=== PATIENT | female | born 1990 | race Caucasian/White ===

== ENCOUNTER 2016-03-27 19:20 | Emergency (ER) | payer OTHER ==
[2016-03-27] MEDS ORDERED: predniSONE 20 MG TABLET PO STA (20:14)
[2016-03-27] MEDS ORDERED: ALBUTEROL NEB 2.5 MG/3 ML INH STA (20:14)
[2016-03-27] MEDS ORDERED: predniSONE 20 MG TABLET ONE (20:16)
[2016-03-27] MEDS ORDERED: ALBUTEROL NEB 2.5 MG/3 ML INH ONE (20:21)
[2016-03-27] MEDS ORDERED: ALBUTEROL 8 GM INHALER INH STA (21:09)
[2016-03-27] MEDS ORDERED: ALBUTEROL 8 GM INHALER INH ONE (21:23)
== END 2016-03-27 21:42 | disposition home or self-care (01) ==
DX: J20.8 Acute bronchitis due to other specified organisms (principal); B97.89 Other viral agents as the cause of diseases classified elsewhere; J45.909 Unspecified asthma, uncomplicated; F17.200 Nicotine dependence, unspecified, uncomplicated
CPT/HCPCS: 71020; 94640; 94664; 99283; 99284; A9270; J7512; J7613

== ENCOUNTER 2016-07-20 21:48 | Emergency (ER) | payer OTHER ==
[2016-07-20 21:55] VITALS: BP 121/71
[2016-07-20 22:11] LABS: BILIRUBIN,URINE NEGATIVE (NEGATIVE)
[2016-07-20 22:15] LABS: HCG UR QUAL NEGATIVE; UA w/ MICROSCOPIC CHARGE YES
[2016-07-20] MEDS ORDERED: NITROFURANTOIN MACRO 100 MG CAPSULE PO STA (22:16)
[2016-07-20] MEDS ORDERED: PHENAZOPYRIDINE 100 MG TABLET PO STA (22:16)
--- NOTE | 2016-07-20 22:17 | ED Physician Documentation ---
PD HPI FEMALE - Stated complaint Stated Complaint: FEMALE - Chief complaint Chief Complaint: Abd Pain - History obtained from History obtained from: Patient - History of Present Illness Timing - onset: Today Timing - duration: Days (1) Timing - details: Gradual onset Pain level max: 5 Pain level max: 5 Associated symptoms: Dysuria, Urinary frequency. No: Fever, Chest/shoulder pain , Abdominal pain, Back pain, Pelvic pain, Vaginal pain, Vaginal bleeding, Vaginal discharge, Genital sore/lesion, Hematuria Contributing factors: No: Similar symptoms before: Diagnosis (UTI) Recently seen: Not recently seen - Additional information Additional information: , monogamous relationship Review of Systems Constitutional: denies: Fever, Chills Respiratory: denies: Dyspnea, Cough GI: denies: Abdominal Pain, Nausea, Vomiting : reports: Dysuria, Frequency, Hesitancy. 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 : None HEENT: None Psych: None Musculoskeletal: None Derm: None - Past Surgical History Past Surgical History: Yes HEENT: Tonsil/Adenoidectomy - Present Medications Home Medications: Ambulatory Orders Medication Instructions Recorded Confirmed Escitalopram [Lexapro] 10 mg PO DAILY 03/27/16 07/20/16 Albuterol Sulf [Ventolin Hfa 2 puffs PO RTQ4H PRN 07/20/16 07/20/16 Inhaler] Fluticasone 44 Mcg [Flovent] 1 puffs PO BID 07/20/16 07/20/16 Loratadine [Claritin] 10 mg PO DAILY 07/20/16 07/20/16 Nitrofurantoin Monohyd/M-Cryst 100 mg PO BID 5 Days 07/20/16 [Macrobid 100 mg Capsule] Phenazopyridine HCl [Pyridium] 200 mg PO TID PRN #6 tablet 07/20/16 - Allergies Allergies/Adverse Reactions: Allergies Allergy/AdvReac Type Severity Reaction Status Date / Time Sulfa (Sulfonamide AdvReac Intermediate Hives Verified 07/20/16 21:55 Antibiotics) sulfamethoxazole AdvReac Hives Verified 07/20/16 21:55 [From ] trimethoprim [From ] AdvReac Hives Verified 07/20/16 21:55 - Social History Does the pt smoke?: Yes Smoking Status: Current every day smoker Does the pt drink ETOH?: No Does the pt have substance abuse?: No - Immunizations Immunizations are current?: Yes - POLST Patient has POLST: No PD ED PE NORMAL - Vitals Vital signs reviewed: Yes - General General: Alert and oriented X 3, No acute distress - HEENT HEENT: Moist mucous membranes - Cardiac Cardiac: RRR - Respiratory Respiratory: No respiratory distress, Clear bilaterally - Abdomen Abdomen: Soft, Non tender, Non distended - Back Back: No CVA TTP, No spinal TTP - Derm Derm: Warm and dry - Neuro Neuro: Alert and oriented X 3 - Psych Psych: Normal mood, Normal affect Results - Vitals Vitals: Vital Signs - 24 hr 07/20/16 21:52 Temperature 36.3 C L Heart Rate 92 Respiratory 16 Rate Blood Pressure 121/71 O2 Saturation 100 Oxygen O2 Source Room air - Labs Labs: Laboratory Tests 07/20/16 22:00 Urine Color YELLOW Urine Clarity HAZY Urine pH 6.0 Ur Specific [place] 1.010 Urine Protein NEGATIVE Urine Glucose (UA) NEGATIVE Urine Ketones NEGATIVE Urine Occult Blood MODERATE H Urine Nitrite NEGATIVE Urine Bilirubin NEGATIVE Urine Urobilinogen 0.2 (NORMAL) Ur Leukocyte Esterase SMALL H Urine RBC 6-10 H Urine WBC 11-25 H Ur Squamous Epith Cells FEW Squamous Urine Bacteria Few Ur Microscopic Review INDICATED Urine Culture Comments INDICATED Urine HCG, Qual NEGATIVE PD MEDICAL DECISION MAKING - ED course Complexity details: reviewed results, considered differential, d/w patient ED course: Patient with a UTI. Will place on antibiotics and Pyridium for this. No vaginal bleeding or discharge. Declines pelvic exam. Patient is well-appearing , nontoxic. No evidence of pyelonephritis. No fevers. Patient counseled regarding signs and symptoms for which I believe and urgent re-evaluation would be necessary. Patient with good understanding of and agreement to plan and is comfortable going home at this time This document was made in part using voice recognition software. While efforts are made to proofread this document, sound alike and grammatical errors may occur. Departure - Departure Disposition: 01 Home, Self Care Clinical Impression: Urinary tract infection Qualifiers: Urinary tract infection type: acute cystitis Hematuria presence: without hematuria Qualified Code(s): N30.00 - Acute cystitis without hematuria Condition: Good Instructions: ED UTI Cystitis Female Follow-Up: your,doctor in 1 week [Other] Prescriptions: Nitrofurantoin Monohyd/M-Cryst [Macrobid 100 mg Capsule] 100 mg PO BID 5 Days Phenazopyridine HCl [Pyridium] 200 mg PO TID PRN #6 tablet PRN Reason: dysuria Comments: Take all antibiotics until gone. Return if you worsen. Discharge Date/Time: 07/20/16 22:35
[2016-07-20] MEDS ORDERED: PHENAZOPYRIDINE 100 MG TABLET PO ONE (22:19)
[2016-07-20] MEDS ORDERED: NITROFURANTOIN MACRO 100 MG CAPSULE PO ONE (22:19)
[2016-07-20 22:21] LABS: UR CULTURE IF IND INDICATED
== END 2016-07-20 22:35 | disposition home or self-care (01) ==
LOC: ED 21:48
DX: N30.00 Acute cystitis without hematuria (principal); J45.909 Unspecified asthma, uncomplicated; F17.200 Nicotine dependence, unspecified, uncomplicated
CPT/HCPCS: 81001; 81025; 87077; 87086; 87181; 99283; A9270; 81003

== ENCOUNTER 2016-07-25 20:51 | Emergency (ER) | payer OTHER | END 2016-07-25 21:25 | disposition home or self-care (01) | DX: S90.32XA Contusion of left foot, initial encounter (principal); W22.8XXA Striking against or struck by other objects, initial encounter; Y92.009 Unspecified place in unspecified non-institutional (private) residence as the place of occurrence of the external cause; R03.0 Elevated blood-pressure reading, without diagnosis of hypertension; F17.200 Nicotine dependence, unspecified, uncomplicated ==

== ENCOUNTER 2016-08-11 21:42 | Emergency (ER) | payer OTHER ==
[2016-08-11 21:47] VITALS: BP 122/83
[2016-08-11 22:11] LABS: UA w/ MICROSCOPIC CHARGE YES
[2016-08-11 22:13] LABS: BILIRUBIN,URINE NEGATIVE (NEGATIVE)
--- NOTE | 2016-08-11 22:13 | ED Physician Documentation ---
PD HPI FEMALE - Stated complaint Stated Complaint: FEMALE - Chief complaint Chief Complaint: UTI - History obtained from History obtained from: Patient - History of Present Illness Timing - onset: Today Timing - duration: Days (1) Timing - details: Abrupt onset (awoke with urgency and dysuria to urinate.), Still present Associated symptoms: Dysuria, Urinary frequency. 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 HEENT: None Psych: None Musculoskeletal: None Derm: None - Past Surgical History Past Surgical History: Yes HEENT: Tonsil/Adenoidectomy - Present Medications Home Medications: Ambulatory Orders Medication Instructions Recorded Confirmed Escitalopram [Lexapro] 10 mg PO DAILY 03/27/16 07/20/16 Albuterol Sulf [Ventolin Hfa 2 puffs PO RTQ4H PRN 07/20/16 07/20/16 Inhaler] Fluticasone 44 Mcg [Flovent] 1 puffs PO BID 07/20/16 07/20/16 Loratadine [Claritin] 10 mg PO DAILY 07/20/16 07/20/16 Nitrofurantoin Monohyd/M-Cryst 100 mg PO BID 5 Days 07/20/16 [Macrobid 100 mg Capsule] Phenazopyridine HCl [Pyridium] 200 mg PO TID PRN #6 tablet 07/20/16 Ciprofloxacin HCl [Cipro] 250 mg PO BID #14 tablet 08/11/16 Phenazopyridine HCl 200 mg PO TID PRN #15 tablet 08/11/16 - Allergies Allergies/Adverse Reactions: Allergies Allergy/AdvReac Type Severity Reaction Status Date / Time Sulfa (Sulfonamide AdvReac Intermediate Hives Verified 07/25/16 20:58 Antibiotics) sulfamethoxazole AdvReac Hives Verified 07/25/16 20:58 [From ] trimethoprim [From ] AdvReac Hives Verified 07/25/16 20:58 - Social History Does the pt smoke?: Yes Smoking Status: Current every day smoker Does the pt drink ETOH?: No Does the pt have substance abuse?: No - Immunizations Immunizations are current?: Yes - POLST Patient has POLST: No PD ED PE NORMAL - Vitals Vital signs reviewed: Yes - General General: Alert and oriented X 3, No acute distress, Well developed/nourished - Derm Derm: Normal color, Warm and dry, No rash - Extremities Extremities: No tenderness to palpate, Normal ROM s pain, No edema, No calf tenderness / cord - Neuro Neuro: Alert and oriented X 3, No motor deficit, Normal speech Results - Vitals Vitals: Oxygen O2 Source Room air - Labs Labs: Microbiology 08/11/16 22:01 Urine Culture - Final Urine,Clean Catch Laboratory Tests 08/11/16 21:55 Urine Color ORANGE Urine Clarity HAZY Urine pH Ur Specific [place] Urine Protein Urine Glucose (UA) Urine Ketones Urine Occult Blood MODERATE H Urine Nitrite Urine Bilirubin NEGATIVE Urine Urobilinogen Ur Leukocyte Esterase SMALL H Urine RBC 6-10 H Urine WBC >25 H Ur Squamous Epith Cells FEW Squamous Urine Bacteria Few Ur Microscopic Review INDICATED Urine Culture Comments Not Reportable Urine HCG, Qual NEGATIVE PD MEDICAL DECISION MAKING - ED course Complexity details: reviewed results, considered differential (Symptoms are of recurrent UTI and the UA is compatible with it. Prior culture reviewed and current abx based off of that. ), d/w patient Departure - Departure Disposition: 01 Home, Self Care Clinical Impression: Cystitis Condition: Stable Record reviewed to determine appropriate education?: Yes Instructions: ED UTI Cystitis Female Follow-Up: DUDLEY PLUMMER [Primary Care Provider] - Prescriptions: Ciprofloxacin HCl [Cipro] 250 mg PO BID #14 tablet Phenazopyridine HCl 200 mg PO TID PRN #15 tablet PRN Reason: Pain Comments: Drink lots of fluids. Cipro twice daily for a week. Pyridium as needed. Recheck if not improved over the next few days. Discharge Date/Time: 08/11/16 22:34
[2016-08-11 22:14] LABS: HCG UR QUAL NEGATIVE
[2016-08-11 22:15] LABS: WBC,URINE >25 /HPF (0-5)
[2016-08-11] MEDS ORDERED: CIPROFLOXACIN 250 MG TABLET PO STA (22:26)
[2016-08-11] MEDS ORDERED: CIPROFLOXACIN 250 MG TABLET PO ONE (22:30)
== END 2016-08-11 22:34 | disposition home or self-care (01) ==
LOC: ED 21:42
DX: N30.00 Acute cystitis without hematuria (principal); J45.909 Unspecified asthma, uncomplicated; F17.200 Nicotine dependence, unspecified, uncomplicated
CPT/HCPCS: 81001; 81025; 87086; 99283; A9270; 81003

== ENCOUNTER 2017-02-02 15:53 | Emergency (ER) | payer OTHER ==
[2017-02-02 16:00] VITALS: BP 118/80
[2017-02-02] MEDS ORDERED: NAPROXEN 250 MG TABLET PO STA (16:21)
--- NOTE | 2017-02-02 16:21 | ED Physician Documentation ---
PD HPI HEADACHE - Stated complaint Stated Complaint: BELLA INTO NECK - Chief complaint Chief Complaint: General - History obtained from History obtained from: Patient - History of Present Illness Timing - onset: How many days ago (2) Timing - details: Still present Worsened by: Moving (In particular, standing or walking.) Similar symptoms before: Has not had sx before - Additional information Additional information: The patient is a 27-year-old female who complains of a throbbing right temporal headache that started 2 days ago and has persisted. It is worse with standing or walking. She also complains of pain in her neck, mostly on the left side. She denies any traumatic injury. She denies fever, sore throat, earache, nausea or vomiting. She does report slight cough and congestion. She denies history of similar symptoms in the past. Review of Systems Constitutional: denies: Fever Ears: denies: Ear pain Nose: reports: Congestion Throat: denies: Sore throat Cardiac: denies: Chest pain / pressure Respiratory: reports: Cough. denies: Dyspnea GI: denies: Abdominal Pain, Nausea, Vomiting : denies: Dysuria Skin: denies: Rash Musculoskeletal: reports: Neck pain Neurologic: reports: Headache. 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 HEENT: None Psych: None Musculoskeletal: None Derm: None - Past Surgical History Past Surgical History: Yes HEENT: Tonsil/Adenoidectomy - Present Medications Home Medications: Ambulatory Orders Medication Instructions Recorded Confirmed Escitalopram [Lexapro] 10 mg PO DAILY 03/27/16 07/20/16 Albuterol Sulf [Ventolin Hfa 2 puffs PO RTQ4H PRN 07/20/16 07/20/16 Inhaler] Fluticasone 44 Mcg [Flovent] 1 puffs PO BID 07/20/16 07/20/16 Loratadine [Claritin] 10 mg PO DAILY 07/20/16 07/20/16 Nitrofurantoin Monohyd/M-Cryst 100 mg PO BID 5 Days capsule 07/20/16 [Macrobid 100 mg Capsule] Phenazopyridine HCl [Pyridium] 200 mg PO TID PRN #6 tablet 05/17/17 Ciprofloxacin HCl [Cipro] 250 mg PO BID #14 tablet 08/11/16 Phenazopyridine HCl 200 mg PO TID PRN #15 tablet 08/11/16 Naproxen [Naprosyn] 500 mg PO BID PRN #20 tablet 02/02/17 - Allergies Allergies/Adverse Reactions: Allergies Allergy/AdvReac Type Severity Reaction Status Date / Time Sulfa (Sulfonamide AdvReac Intermediate Hives Verified 02/02/17 16:01 Antibiotics) sulfamethoxazole AdvReac Hives Verified 02/02/17 16:01 [From ] trimethoprim [From ] AdvReac Hives Verified 02/02/17 16:01 - Social History Does the pt smoke?: Yes Smoking Status: Current every day smoker Does the pt drink ETOH?: Yes ETOH Use: Beer Does the pt have substance abuse?: No - Immunizations Immunizations are current?: Yes - POLST Patient has POLST: No PD ED PE NORMAL - Vitals Vital signs reviewed: Yes (normal) - General General: Alert and oriented X 3, Well developed/nourished - HEENT HEENT: Atraumatic, PERRL, EOMI, Ears normal, Moist mucous membranes, Pharynx benign, Other (Fundi with sharp disc margins, without papilledema.) - Neck Neck: Supple, no meningeal sign, No bony TTP, No adenopathy, Other (There is mild tenderness to palpation along the left paracervical musculature. The patient is able to turn her head from side to side with slight exacerbation of the discomfort. There is no meningismus.) - Cardiac Cardiac: RRR, No murmur - Respiratory Respiratory: No respiratory distress, Clear bilaterally - Abdomen Abdomen: Soft, Non tender - Back Back: No CVA TTP - Derm Derm: No rash - Extremities Extremities: No edema, No calf tenderness / cord - Neuro Neuro: Alert and oriented X 3, No motor deficit, Normal speech Results - Vitals Vitals: Oxygen O2 Source Room air PD MEDICAL DECISION MAKING - ED course Complexity details: reviewed old records, re-evaluated patient, considered differential, d/w patient ED course: The patient's headache is most likely due to viral syndrome. Her presentation does not suggest meningitis, intracranial hemorrhage, temporal arteritis, nor pseudotumor cerebri. Treatment in the emergency department included administration of Naprosyn 500 mg orally. Her headache did improve with this treatment. She is being discharged with prescription for Naprosyn. I discussed with her the expected course of illness, symptomatic treatment and outpatient follow-up, as well as potentially worrisome signs or symptoms that should prompt reevaluation in the emergency department. Departure - Departure Disposition: 01 Home, Self Care Clinical Impression: Viral syndrome Headache Qualifiers: Headache type: unspecified Headache chronicity pattern: unspecified pattern Intractability: not intractable Qualified Code(s): R51 - Headache Condition: Stable Instructions: ED Viral Syndrome Follow-Up: Naun Gunn PA-C [Physician No Access] - Prescriptions: Naproxen [Naprosyn] 500 mg PO BID PRN #20 tablet PRN Reason: Pain Comments: Drink plenty of fluids. You can use Naprosyn as prescribed if needed for headache or neck pain. Follow up with your primary physician within 1 week. Call to schedule an appointment. Return to the emergency department if you develop increasing headache, persistent vomiting, or otherwise worsening symptoms. Discharge Date/Time: 02/02/17 16:51
[2017-02-02] MEDS ORDERED: NAPROXEN 250 MG TABLET PO ONE (16:29)
== END 2017-02-02 16:51 | disposition home or self-care (01) ==
LOC: ED 15:53
DX: B34.9 Viral infection, unspecified (principal); R51 Headache; J45.909 Unspecified asthma, uncomplicated; F17.200 Nicotine dependence, unspecified, uncomplicated
CPT/HCPCS: 99283; 99284; A9270

== ENCOUNTER 2017-04-17 13:54 | Emergency (ER) | payer OTHER ==
[2017-04-17 15:20] LABS: BILIRUBIN,URINE NEGATIVE (NEGATIVE); GLUCOSE, URINE (UA) NEGATIVE (NEGATIVE); KETONES,URINE (UA) NEGATIVE (NEGATIVE); LEUKOCYTE ESTERASE, URINE NEGATIVE (NEGATIVE); NITRITE,URINE NEGATIVE (NEGATIVE); OCCULT BLOOD,URINE LARGE (NEGATIVE); PROTEIN,URINE NEGATIVE (NEGATIVE); UROBILINOGEN,URINE 1 (NORMAL) E.U./dL (NORMAL)
[2017-04-17 15:23] LABS: CLARITY,URINE HAZY (CLEAR); HCG UR QUAL NEGATIVE
[2017-04-17 15:35] LABS: BACTERIA,URINE None Seen /HPF (None Seen); RBC,URINE TNTC /HPF (0-5); SQUAMOUS EPITHELIAL CELL,UR FEW Squamous (<= Few)
[2017-04-17 15:38] VITALS: BP 127/77
[2017-04-17 15:47] LABS: BASOPHILS # (AUTO) 0.1 10^3/uL (0.0-0.1); BASOPHILS % (AUTO) 0.5 %; EOSINOPHILS # (AUTO) 0.4 10^3/uL (0.0-0.7); EOSINOPHILS % (AUTO) 4.4 %; HGB - HEMOGLOBIN 15.8 g/dL (12.0-16.0); LYMPHOCYTES # (AUTO) 3.2 10^3/uL (1.5-3.5); LYMPHOCYTES % (AUTO) 31.4 %; MEAN CORPUSCULAR HEMOGLOBIN 30.7 pg (27.0-31.0); MEAN CORPUSCULAR HGB CONC 34.2 g/dL (32.0-36.0); MEAN CORPUSCULAR VOLUME 89.7 fL (81.0-99.0); MEAN PLATELET VOLUME 9.4 fL (7.9-10.8); MONOCYTES # (AUTO) 0.6 10^3/uL (0.0-1.0); NEUTROPHILS # (AUTO) 5.8 10^3/uL (1.5-6.6); NEUTROPHILS % (AUTO) 57.7 %; PLT - PLATELET COUNT 221 10^3/uL (130-450); RED BLOOD COUNT 5.13 10^6/uL (4.20-5.40); RED CELL DISTRIBUTION WIDTH 13.1 % (12.0-15.0); WHITE BLOOD COUNT 10.1 x10^3/uL (4.8-10.8)
--- NOTE | 2017-04-17 15:57 | ED Physician Documentation ---
PD HPI FEMALE - Stated complaint Stated Complaint: FEMALE - Chief complaint Chief Complaint: Abd Pain - History obtained from History obtained from: Patient, Family - History of Present Illness Timing - onset: Enter time (0800), Today Timing - duration: Hours Timing - details: Abrupt onset, Still present Associated symptoms: Abdominal pain, Vaginal bleeding. No: Vaginal pain, Vaginal discharge Similar symptoms before: Diagnosis (ectopic ) Recently seen: Not recently seen - Additional information Additional information: 27-year-old female awoke this morning shortly after developed severe right lower quadrant pelvic pain at a 10 out of 10. She had some improvement in the pain but the pain has not resolved. In addition she began to bleed at the time this pain started and the pain and bleeding have persisted. She has had some clots. She has had ectopic previously with similar presentation. Review of Systems Constitutional: denies: Fever Nose: denies: Congestion Throat: denies: Sore throat Respiratory: denies: Cough GI: denies: Abdominal Pain, Vomiting : reports: Vaginal bleeding, Irregular menses. 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 : None HEENT: None Psych: Anxiety Musculoskeletal: None Derm: None - Past Surgical History Past Surgical History: Yes HEENT: Tonsil/Adenoidectomy - Present Medications Home Medications: Ambulatory Orders Medication Instructions Recorded Confirmed Escitalopram [Lexapro] 10 mg PO DAILY 03/27/16 07/20/16 Albuterol Sulf [Ventolin Hfa 2 puffs PO RTQ4H PRN 07/20/16 07/20/16 Inhaler] Fluticasone 44 Mcg [Flovent] 1 puffs PO BID 07/20/16 07/20/16 Loratadine [Claritin] 10 mg PO DAILY 07/20/16 07/20/16 Nitrofurantoin Monohyd/M-Cryst 100 mg PO BID 5 Days capsule 07/20/16 [Macrobid 100 mg Capsule] Phenazopyridine HCl [Pyridium] 200 mg PO TID PRN #6 tablet 07/20/16 Ciprofloxacin HCl [Cipro] 250 mg PO BID #14 tablet 08/11/16 Phenazopyridine HCl 200 mg PO TID PRN #15 tablet 08/11/16 Naproxen [Naprosyn] 500 mg PO BID PRN #20 tablet 02/02/17 - Allergies Allergies/Adverse Reactions: Allergies Allergy/AdvReac Type Severity Reaction Status Date / Time Sulfa (Sulfonamide AdvReac Intermediate Hives Verified 04/17/17 14:03 Antibiotics) sulfamethoxazole AdvReac Hives Verified 04/17/17 14:03 [From ] trimethoprim [From ] AdvReac Hives Verified 04/17/17 14:03 - Social History Does the pt smoke?: Yes Smoking Status: Current every day smoker Does the pt drink ETOH?: Yes Does the pt have substance abuse?: No - Immunizations Immunizations are current?: Yes - POLST Patient has POLST: No PD ED PE NORMAL - Vitals Vital signs reviewed: Yes (normal ) - General General: No acute distress, Well developed/nourished - HEENT HEENT: Atraumatic, PERRL, EOMI - Neck Neck: Supple, no meningeal sign - Cardiac Cardiac: RRR, No murmur - Respiratory Respiratory: No respiratory distress, Clear bilaterally - Abdomen Abdomen: Soft, Non tender - Back Back: No CVA TTP, No spinal TTP - Derm Derm: Normal color, Warm and dry, No rash - Neuro Neuro: Alert and oriented X 3, No motor deficit, No sensory deficit, Normal speech Eye Opening: Spontaneous Motor: Obeys Commands Verbal: Oriented GCS Score: 15 Results - Vitals Vitals: Vital Signs - 24 hr 04/17/17 04/17/17 13:59 15:37 Temperature 36.6 C Heart Rate 84 69 Respiratory 16 18 Rate Blood Pressure 117/68 127/77 O2 Saturation 100 100 Oxygen O2 Source Room air - Labs Labs: Laboratory Tests 04/17/17 04/17/17 04/17/17 14:16 15:40 15:40 WBC 10.1 RBC 5.13 Hgb 15.8 Hct 46.1 MCV 89.7 MCH 30.7 MCHC 34.2 RDW 13.1 Plt Count 221 MPV 9.4 Neut # 5.8 Lymph # 3.2 [place]aves # 0.6 Eos # 0.4 Baso # 0.1 Absolute Nucleated RBC 0.01 Nucleated RBC % 0.1 Sodium 137 Potassium 4.1 Chloride 102 Carbon Dioxide 24 Anion Gap 11.0 BUN 9 Creatinine 0.8 Estimated GFR (MDRD) 85 L Glucose 75 Calcium 9.3 Total Bilirubin 0.6 AST 16 ALT 10 Alkaline Phosphatase 65 Total Protein 7.3 Albumin 4.6 Globulin 2.7 Albumin/Globulin Ratio 1.7 Lipase 11 L Urine Color DARK YELLOW Urine Clarity HAZY Urine pH 8.0 H Ur Specific [place] 1.015 Urine Protein NEGATIVE Urine Glucose (UA) NEGATIVE Urine Ketones NEGATIVE Urine Occult Blood LARGE H Urine Nitrite NEGATIVE Urine Bilirubin NEGATIVE Urine Urobilinogen 1 (NORMAL) Ur Leukocyte Esterase NEGATIVE Urine RBC TNTC H Urine WBC 0-3 Ur Squamous Epith Cells FEW Squamous Urine Bacteria None Seen Ur Microscopic Review INDICATED Urine Culture Comments NOT INDICATED Urine HCG, Qual NEGATIVE - Rads (name of study) pelvic ultrasound Radiology: Prelim report reviewed (Impression: Normal pelvic ultrasound.), EMP read indepedently, See rad report Procedures - Bedside sono Bedside sono by EMP: With use of bedside ultrasound the pelvis is imaged and there does appear to be some free fluid in the cul-de-sac that is minimal. I am not able to image either ovary. PD MEDICAL DECISION MAKING - ED course Complexity details: reviewed old records, reviewed results, re-evaluated patient , considered differential, d/w patient, d/w family ED course: 27-year-old female with acute onset of menses early excessive vaginal bleeding and pelvic pain presents to the emergency department today with concerns about the possibility of ectopic as this is happened to her previously. She is found to be not today and there is still acute pelvic pain. ultrasound reveals no significant abnormality. Departure - Departure Disposition: 01 Home, Self Care Clinical Impression: Dysmenorrhea Condition: Stable Instructions: ED Cramping Menstrual Follow-Up: Naun Gunn PA-C [Primary Care Provider] - Discharge Date/Time: 04/17/17 17:52
[2017-04-17 15:59] LABS: ALBUMIN 4.6 g/dL (3.2-5.5); ALBUMIN/GLOBULIN RATIO 1.7 (1.0-2.2); BILIRUBIN,TOTAL 0.6 mg/dL (0.2-1.0); CALCIUM 9.3 mg/dL (8.5-10.3); CREATININE 0.8 mg/dL (0.4-1.0); TOTAL PROTEIN 7.3 g/dL (6.7-8.2)
--- NOTE | 2017-04-17 17:00 | Ultrasound Preliminary Report ---
Exam: US PEL NON OB W/TV + DOP LTD IMPRESSION: Normal pelvic ultrasound. [facility] SITE ID: [id number]
--- NOTE | 2017-04-17 17:11 | Ultrasound Report ---
EXAM: PELVIC ULTRASOUND EXAM DATE: 04/17/2017 04:47 PM. CLINICAL HISTORY: LMP 04/17/2017. , ectopic 1. Right-sided pelvic pain with heavier than usual m enstrual flow, blood clots. COMPARISON: None. TECHNIQUE: Realtime transabdominal pelvic scan performed to identify the uterus and adnexa and as an overview of other pelvic structures, followed by transvaginal scan to provide greater detail of the u terus and adnexa, with static image documentation. FINDINGS: Uterus: 7.7 x 3.2 x 3.7 cm anteverted position. Normal overall size and echotexture. Masses: None. Endometrium: 2.4 mm. Normal. Cervix: Unremarkable. Right Ovary: 3.2 x 1.5 x 2.0 cm, volume 5.0 cc. 1.3 x 0.6 x 1.0 cm dominant follicular cyst. Normal echotexture and blood flow. Left Ovary: 2.9 x 1.6 x 2.1 cm, volume 5.1 cc. Normal echotexture and blood flow. Free Fluid: None. Other: None. IMPRESSION: Normal pelvic ultrasound. [facility] Referring Provider Line: [phone] SITE ID: [id number]
== END 2017-04-17 17:52 | disposition home or self-care (01) ==
LOC: ED 13:54
DX: N94.6 Dysmenorrhea, unspecified (principal); F17.200 Nicotine dependence, unspecified, uncomplicated
CPT/HCPCS: 36415; 76830; 76856; 80053; 81001; 81003; 81025; 83690; 85025; 87086; 93976; 99283

== ENCOUNTER 2017-05-24 19:49 | Emergency (ER) | payer OTHER ==
[2017-05-24] MEDS ORDERED: AMOX/CLAV 875 MG/125 MG TABLET PO STA (21:13)
[2017-05-24] MEDS ORDERED: PSEUDOEPHEDRINE 30 MG TABLET PO STA (21:13)
--- NOTE | 2017-05-24 21:19 | ED Physician Documentation ---
PD HPI HEENT - Stated complaint Stated Complaint: EAR RINGING/DIZZINESS - Chief complaint Chief Complaint: Heent - History obtained from History obtained from: Patient - History of Present Illness Timing - onset: How many days ago (4) Timing - details: Gradual onset, Still present Location: Right ear, Left ear Associated symptoms: Congestion, Rhinorrhea. No: Fever Similar symptoms before: Has not had sx before Recently seen: Not recently seen - Additional information Additional information: Patient is a 27 year old female with no significant past medical history who is presenting to the emergency department for bilateral ear congestion and popping in her ears. Patient states that she recently had a bronchitis and a sinusitis and her ears have remained clogged. The pop sometimes on their own but she is unable to clear them. patient also reports that she has intermittent inability to hear and dizziness. Review of Systems Constitutional: denies: Fever Eyes: denies: Decreased vision, Photophobia Ears: reports: Loss of hearing, Ear pain, Tinnitus/ringing Nose: reports: Congestion, Sinus pressure / pain Throat: denies: Sore throat Cardiac: denies: Chest pain / pressure, Palpitations Respiratory: denies: Dyspnea, Cough GI: reports: Reviewed and negative : reports: Reviewed and negative Musculoskeletal: reports: Reviewed and negative Neurologic: denies: Generalized weakness, Focal weakness, Headache Immunocompromised: denies: Immunocompromised PD PAST MEDICAL HISTORY - Past Medical History Cardiovascular: None Respiratory: Asthma Neuro: None Endocrine/Autoimmune: None GI: None 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 : None HEENT: None Psych: Depression, Anxiety Musculoskeletal: None Derm: None - Past Surgical History Past Surgical History: Yes HEENT: Tonsil/Adenoidectomy - Present Medications Home Medications: Ambulatory Orders Medication Instructions Recorded Confirmed Amox/Clav 875/125 [Augmentin] 1 each PO Q12H #14 tablet 05/24/17 Pseudoephedrine [Sudafed] 30 mg PO Q6H #20 tablet 05/24/17 Sertraline [Zoloft] 50 mg PO DAILY 05/24/17 05/24/17 - Allergies Allergies/Adverse Reactions: Allergies Allergy/AdvReac Type Severity Reaction Status Date / Time Sulfa (Sulfonamide AdvReac Intermediate Hives Verified 05/24/17 19:55 Antibiotics) sulfamethoxazole AdvReac Hives Verified 05/24/17 19:55 [From ] trimethoprim [From ] AdvReac Hives Verified 05/24/17 19:55 - Social History Does the pt smoke?: Yes Smoking Status: Current every day smoker Does the pt drink ETOH?: Yes Does the pt have substance abuse?: No - Immunizations Immunizations are current?: Yes - POLST Patient has POLST: No PD ED PE NORMAL - Vitals Vital signs reviewed: Yes - General General: Alert and oriented X 3, No acute distress - HEENT HEENT: Atraumatic, PERRL - Neck Neck: Supple, no meningeal sign - Cardiac Cardiac: RRR, No murmur - Respiratory Respiratory: No respiratory distress - Abdomen Abdomen: Non distended - Derm Derm: Normal color, Warm and dry, No rash - Extremities Extremities: No deformity - Neuro Neuro: Alert and oriented X 3, No motor deficit, No sensory deficit, Normal speech Eye Opening: Spontaneous Motor: Obeys Commands Verbal: Oriented GCS Score: 15 - Psych Psych: Normal mood PD ED PE EXPANDED - HEENT HEENT: R TM dull, R TM bulging, L TM dull, L TM bulging, Right frontal sinus TTP , Left frontal sinus TTP, Nasal congestion Results - Vitals Vitals: Vital Signs - 24 hr 05/24/17 05/24/17 19:51 21:27 Temperature 36.2 C L 36.9 C Heart Rate 68 83 Respiratory 16 16 Rate Blood Pressure 120/76 103/59 L O2 Saturation 100 99 Oxygen O2 Source Room air PD MEDICAL DECISION MAKING - ED course Complexity details: reviewed old records, reviewed results, re-evaluated patient , considered differential, d/w patient ED course: Patient was seen and examined at bedside. Patient was afebrile and in no acute distress. patient did have fluid behind both typmanic membranes with possible distention. Patient was treated with augmentin and psuedophedrine. Patient required no further work up and was stable for discharge with outpatient follow up. Departure - Departure Disposition: 01 Home, Self Care Clinical Impression: Sinusitis Condition: Good Instructions: ED Sinusitis Abx Tx Follow-Up: Naun Gunn PA-C [Primary Care Provider] - Within 3 Days Prescriptions: Amox/Clav 875/125 [Augmentin] 1 each PO Q12H #14 tablet Pseudoephedrine [Sudafed] 30 mg PO Q6H #20 tablet Comments: Your symptoms today are being caused by congestion behind your ears. You have been started on antibiotics and a decongestant. You should follow up with your doctor if your symptoms don't improve. You may return to the emergency department at any time for new, worsening or uncontrollable symptoms. Discharge Date/Time: 05/24/17 21:34
[2017-05-24 21:28] VITALS: BP 103/59
== END 2017-05-24 21:34 | disposition home or self-care (01) ==
LOC: ED 19:49
DX: J32.9 Chronic sinusitis, unspecified (principal)
CPT/HCPCS: 99283; A9270

== ENCOUNTER 2017-06-24 20:01 | Emergency (ER) | payer OTHER ==
--- NOTE | 2017-06-24 20:58 | ED Physician Documentation ---
History of Present Illness - Stated complaint Stated Complaint: CHEST PX - Chief complaint Chief Complaint: General - History obtained from History obtained from: Patient - History of Present Illness Timing: Today Pain level max: 5 Pain level now: 1 Improved by: rest Worsened by: deep breath - Additonal information Additional information: States L sided sharp, chest pain since noon today. Had a sore throat 2 days ago. States has rhinorrhea, congestion. States had asthma as a child. Takes zoloft for anxiety. No new dyspnea today. 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 : None HEENT: None Psych: Depression, Anxiety Musculoskeletal: None Derm: None - Past Surgical History Past Surgical History: Yes HEENT: Tonsil/Adenoidectomy - Present Medications Home Medications: Ambulatory Orders Medication Instructions Recorded Confirmed Sertraline [Zoloft] 50 mg PO DAILY 05/24/17 05/24/17 Albuterol Sulf [Ventolin Hfa 1 - 2 puffs INH Q4HR PRN #1 inhaler 06/24/17 Inhaler] Meloxicam [Mobic] 15 mg PO DAILY PRN #20 tablet 06/24/17 - Allergies Allergies/Adverse Reactions: Allergies Allergy/AdvReac Type Severity Reaction Status Date / Time Sulfa (Sulfonamide AdvReac Intermediate Hives Verified 06/24/17 20:08 Antibiotics) sulfamethoxazole AdvReac Hives Verified 06/24/17 20:08 [From ] trimethoprim [From ] AdvReac Hives Verified 06/24/17 20:08 - Social History Does the pt smoke?: Yes Smoking Status: Current every day smoker Does the pt drink ETOH?: Yes Does the pt have substance abuse?: No - Immunizations Immunizations are current?: Yes - POLST Patient has POLST: No PD ED PE NORMAL - Vitals Vital signs reviewed: Yes - General General: Alert and oriented X 3, No acute distress, Well developed/nourished - HEENT HEENT: Ears normal, Moist mucous membranes, Pharynx benign - Neck Neck: Supple, no meningeal sign - Cardiac Cardiac: RRR - Respiratory Respiratory: Other (mild dimished BS bilaterally.) - Abdomen Abdomen: Soft, Non tender, Non distended - Derm Derm: Warm and dry - Extremities Extremities: No edema, No calf tenderness / cord - Neuro Neuro: Alert and oriented X 3 - Psych Psych: Normal mood, Normal affect Results - Vitals Vitals: Vital Signs - 24 hr 06/24/17 06/24/17 06/24/17 20:05 21:07 21:49 Temperature 36.2 C L 36.6 C Heart Rate 83 73 98 Respiratory 18 14 16 Rate Blood Pressure 148/91 H 150/68 H O2 Saturation 99 98 Oxygen O2 Source Room air - Rads (name of study) cxr Radiology: Prelim report reviewed, EMP read contemporaneously, See rad report ( normal) PD MEDICAL DECISION MAKING - ED course Complexity details: reviewed results, re-evaluated patient, considered differential, d/w patient ED course: Patient is a 27-year-old female who presents to the emergency department with what appears to be a viral URI complicated by pleurisy. Feels better after albuterol treatment. Toradol resolved her pain. We will continue supportive care at home and follow-up with her doctor. No evidence of pneumothorax, pulmonary embolism, pneumonia. No hypoxia. Patient counseled regarding signs and symptoms for which I believe and urgent re-evaluation would be necessary. Patient with good understanding of and agreement to plan and is comfortable going home at this time This document was made in part using voice recognition software. While efforts are made to proofread this document, sound alike and grammatical errors may occur. Departure - Departure Disposition: 01 Home, Self Care Clinical Impression: Viral URI, Pleurisy Condition: Good Instructions: ED Chest Pain Pleurisy, ED Viral Syndrome Follow-Up: Naun Gunn PA-C [Primary Care Provider] - Within 1 week Prescriptions: Albuterol Sulf [Ventolin Hfa Inhaler] 1 - 2 puffs INH Q4HR PRN #1 inhaler PRN Reason: Shortness Of Air/Wheezing Meloxicam [Mobic] 15 mg PO DAILY PRN #20 tablet PRN Reason: pain Comments: Return if you worsen. This should improve over the next few days. Use the meloxicam as needed for pain. Use the inhaler to help with your breathing. Discharge Date/Time: 06/24/17 22:06
[2017-06-24] MEDS ORDERED: KETOROLAC 60 MG/2 ML VIAL IM STA (20:59)
[2017-06-24] MEDS ORDERED: ALBUTEROL NEB 2.5 MG/3 ML INH STA (20:59)
[2017-06-24 21:50] VITALS: BP 150/68
--- NOTE | 2017-06-24 21:53 | XRAY Report ---
EXAM: CHEST RADIOGRAPHY EXAM DATE: 06/24/2017 09:38 PM. CLINICAL HISTORY: Chest pain, URI symptoms. COMPARISON: 03/27/2016. TECHNIQUE: 2 views. FINDINGS: Lungs/Pleura: Clear. No effusion or pneumothorax. Mediastinum: Heart and mediastinal contours are unremarkable. Upper lobe vessels not distended. Other: None. IMPRESSION: Normal 2-view chest radiography. [facility] Referring Provider Line: [phone] SITE ID: [id number]
== END 2017-06-24 22:06 | disposition home or self-care (01) ==
LOC: ED 20:01
DX: J06.9 Acute upper respiratory infection, unspecified (principal); B97.89 Other viral agents as the cause of diseases classified elsewhere; R09.1 Pleurisy; F17.200 Nicotine dependence, unspecified, uncomplicated
CPT/HCPCS: 71046; 93005; 94640; 94664; 96372; 99283; 99284

== ENCOUNTER 2017-08-18 20:42 | Emergency (ER) | payer OTHER ==
[2017-08-18 20:49] VITALS: BP 116/64
--- NOTE | 2017-08-18 21:05 | ED Physician Documentation ---
PD HPI SKIN - Stated complaint Stated Complaint: RASH - Chief complaint Chief Complaint: Wound - History obtained from History obtained from: Patient - History of Present Illness Timing - onset: Today Timing - details: Abrupt onset, Still present Location: Back Quality / character: Painful Similar symptoms before: Has not had sx before Recently seen: Not recently seen - Additional information Additional information: Patient is a 27 year old female with no significant past medical history who is presenting to the emergency department for a rash. patient states that when she got out of the shower today she noticed a new rash on her gluteal region. Patient states that it is painful. patient has never had a rash like this before. patient denies any trauma, or exposure to any new materials or substances. 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 : None HEENT: None Psych: Depression, Anxiety Musculoskeletal: None Derm: None - Past Surgical History Past Surgical History: Yes HEENT: Tonsil/Adenoidectomy - Present Medications Home Medications: Ambulatory Orders Medication Instructions Recorded Confirmed Sertraline [Zoloft] 50 mg PO DAILY 05/24/17 08/18/17 - Allergies Allergies/Adverse Reactions: Allergies Allergy/AdvReac Type Severity Reaction Status Date / Time Sulfa (Sulfonamide AdvReac Intermediate Hives Verified 08/18/17 20:48 Antibiotics) sulfamethoxazole AdvReac Hives Verified 08/18/17 20:48 [From ] trimethoprim [From ] AdvReac Hives Verified 08/18/17 20:48 - Social History Does the pt smoke?: Yes Smoking Status: Current every day smoker Does the pt drink ETOH?: Yes Does the pt have substance abuse?: No - Immunizations Immunizations are current?: Yes - POLST Patient has POLST: No PD ED PE NORMAL - Vitals Vital signs reviewed: Yes - General General: Alert and oriented X 3, No acute distress - HEENT HEENT: Atraumatic - Cardiac Cardiac: RRR - Respiratory Respiratory: No respiratory distress - Neuro Neuro: Alert and oriented X 3 Eye Opening: Spontaneous PD ED PE EXPANDED - Derm SKin visual: 1 - rash 2 - rash (dermatitis, no vesicles) Results - Vitals Vitals: Vital Signs - 24 hr 08/18/17 20:44 Temperature 36.7 C Heart Rate 69 Respiratory 19 Rate Blood Pressure 116/64 O2 Saturation 100 Oxygen O2 Source Room air PD MEDICAL DECISION MAKING - ED course Complexity details: reviewed old records, reviewed results, re-evaluated patient , considered differential, d/w patient ED course: Patient was seen and examined at bedside. patient was well appearing and in no distress. patient's rash did no appear infectious in nature. Patient required no further inpatient work up and was stable for discharge with outpatient follow up. - Sepsis Event Vital Signs: Vital Signs - 24 hr 08/18/17 20:44 Temperature 36.7 C Heart Rate 69 Respiratory 19 Rate Blood Pressure 116/64 O2 Saturation 100 Oxygen O2 Source Room air Departure - Departure Disposition: 01 Home, Self Care Clinical Impression: Dermatitis Condition: Good Instructions: ED Dermatitis Non Specific Rash Follow-Up: DUDLEY PLUMMER [Primary Care Provider] - Within 3 Days Comments: Your symptoms today are being caused by dermatitis or inflammation of the skin. You should try over the counter steriod cream on one of the affected areas to see if if changes. You should monitor the rash and follow up with your doctor monday if it doesn't improve. You may return to the emergency department at any time for new, worsening or uncontrollable symptoms.
== END 2017-08-18 21:09 | disposition home or self-care (01) ==
LOC: ED 20:42
DX: L30.9 Dermatitis, unspecified (principal); F17.200 Nicotine dependence, unspecified, uncomplicated
CPT/HCPCS: 99282

== ENCOUNTER 2017-09-24 11:08 | Emergency (ER) | payer OTHER ==
[2017-09-24 11:18] VITALS: BP 121/53
--- NOTE | 2017-09-24 12:23 | ED Physician Documentation ---
PD HPI URI - Stated complaint Stated Complaint: LIGHTHEADED/FATIGUE/NAUSEA - Chief complaint Chief Complaint: Neuro - History obtained from History obtained from: Patient - History of Present Illness Timing - onset: How many days ago (few) Timing duration: Days (few) Timing details: Gradual onset, Still present Associated symptoms: Chills, Other (general aches and malaise. She feels like she is getting a flu/cold but has no URI symptoms nor other focal symptoms. Exception is she has had a lump on left labia for 2-3 weeks that had gotten bigger like a large marble and then opened and has been draining daily but only pea sized at biggest now. She has had this prior to the onset of the malaise/ aches symptoms.). No: Fever Contributing factors: No: Sick contact, Travel, Immunocompromised Similar symptoms before: Has not had sx before Recently seen: Not recently seen Review of Systems Constitutional: reports: Chills, Myalgias, Fatigue. denies: Fever Nose: denies: Rhinorrhea / runny nose, Congestion Throat: denies: Sore throat Cardiac: denies: Chest pain / pressure Respiratory: denies: Dyspnea, Cough GI: denies: Nausea, Vomiting, Diarrhea : reports: Other (left labial lump/cyst for few weeks). denies: Dysuria, Frequency, Discharge Skin: denies: Rash Neurologic: reports: Generalized weakness. 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 HEENT: None Psych: Depression, Anxiety Musculoskeletal: None Derm: None - Past Surgical History Past Surgical History: Yes HEENT: Tonsil/Adenoidectomy - Present Medications Home Medications: Ambulatory Orders Medication Instructions Recorded Confirmed Sertraline [Zoloft] 50 mg PO DAILY 05/24/17 08/18/17 Doxycycline Monohydrate 100 mg PO BID #14 tablet 09/24/17 - Allergies Allergies/Adverse Reactions: Allergies Allergy/AdvReac Type Severity Reaction Status Date / Time Sulfa (Sulfonamide AdvReac Intermediate Hives Verified 09/24/17 11:18 Antibiotics) sulfamethoxazole AdvReac Hives Verified 09/24/17 11:18 [From ] trimethoprim [From ] AdvReac Hives Verified 09/24/17 11:18 - Social History Does the pt smoke?: Yes Smoking Status: Current every day smoker Does the pt drink ETOH?: Yes Does the pt have substance abuse?: No - Immunizations Immunizations are current?: Yes - POLST Patient has POLST: No PD ED PE NORMAL - Vitals Vital signs reviewed: Yes - General General: Alert and oriented X 3, No acute distress, Well developed/nourished - HEENT HEENT: Ears normal, Pharynx benign - Neck Neck: Supple, no meningeal sign, No adenopathy - Cardiac Cardiac: RRR, No murmur - Respiratory Respiratory: Clear bilaterally - Abdomen Abdomen: Normal bowel sounds, Soft, Non tender - Female Female : Deferred - Rectal Rectal: Deferred - Back Back: No CVA TTP - Derm Derm: Normal color, Warm and dry, No rash - Extremities Extremities: Normal ROM s pain, No edema, No calf tenderness / cord - Neuro Neuro: Alert and oriented X 3, No motor deficit, Normal speech Results - Vitals Vitals: Vital Signs - 24 hr 09/24/17 11:14 Temperature 36.7 C Heart Rate 64 Respiratory 14 Rate Blood Pressure 121/53 L O2 Saturation 100 Oxygen O2 Source Room air - Labs Labs: Laboratory Tests 09/24/17 09/24/17 09/24/17 12:56 12:56 12:56 WBC 10.5 RBC 5.19 Hgb 15.8 Hct 47.0 MCV 90.6 MCH 30.5 MCHC 33.6 RDW 13.1 Plt Count 245 MPV 9.3 Neut # (Auto) 6.2 Lymph # (Auto) 2.9 [place] # (Auto) 0.7 Eos # (Auto) 0.5 Baso # (Auto) 0.1 Absolute Nucleated RBC 0.00 Nucleated RBC % 0.0 Sodium 137 Potassium 4.0 Chloride 104 Carbon Dioxide 25 Anion Gap 8.0 BUN 8 Creatinine 0.8 Estimated GFR (MDRD) 85 L Glucose 84 Calcium 8.9 Total Bilirubin 0.8 AST 15 ALT 10 Alkaline Phosphatase 65 Total Protein 7.4 Albumin 4.4 Globulin 3.0 Albumin/Globulin Ratio 1.5 Lipase 24 TSH 1.98 Serum HCG, Qual NEGATIVE Urine Color Urine Clarity Urine pH Ur Specific [place] Urine Protein Urine Glucose (UA) Urine Ketones Urine Occult Blood Urine Nitrite Urine Bilirubin Urine Urobilinogen Ur Leukocyte Esterase Ur Microscopic Review Urine Culture Comments 09/24/17 13:07 WBC RBC Hgb Hct MCV MCH MCHC RDW Plt Count MPV Neut # (Auto) Lymph # (Auto) [place] # (Auto) Eos # (Auto) Baso # (Auto) Absolute Nucleated RBC Nucleated RBC % Sodium Potassium Chloride Carbon Dioxide Anion Gap BUN Creatinine Estimated GFR (MDRD) Glucose Calcium Total Bilirubin AST ALT Alkaline Phosphatase Total Protein Albumin Globulin Albumin/Globulin Ratio Lipase TSH Serum HCG, Qual Urine Color YELLOW Urine Clarity CLEAR Urine pH 6.0 Ur Specific [place] <=1.005 Urine Protein NEGATIVE Urine Glucose (UA) NEGATIVE Urine Ketones NEGATIVE Urine Occult Blood NEGATIVE Urine Nitrite NEGATIVE Urine Bilirubin NEGATIVE Urine Urobilinogen 0.2 (NORMAL) Ur Leukocyte Esterase NEGATIVE Ur Microscopic Review NOT INDICATED Urine Culture Comments NOT INDICATED PD MEDICAL DECISION MAKING - ED course Complexity details: considered differential (has general fatigue, flu-like feeling, without URI symptoms. She describes a bartholins cyst infection that drains daily (pelvic deferred as description is clear), so will give abx for that, and that might be the cause of the immune symptoms. ), d/w patient - Sepsis Event Vital Signs: Vital Signs - 24 hr 09/24/17 11:14 Temperature 36.7 C Heart Rate 64 Respiratory 14 Rate Blood Pressure 121/53 L O2 Saturation 100 Oxygen O2 Source Room air Departure - Departure Disposition: 01 Home, Self Care Clinical Impression: Bartholin's gland abscess Fatigue Qualifiers: Fatigue type: unspecified Qualified Code(s): R53.83 - Other fatigue Condition: Stable Record reviewed to determine appropriate education?: Yes Instructions: Bartholin Cyst Abscess Follow-Up: DUDLEY PLUMMER [Primary Care Provider] - Prescriptions: Doxycycline Monohydrate 100 mg PO BID #14 tablet Comments: Doxycycline twice a day for a week for the vaginal labial infection. This is commonly a clogged gland that can get infected. See how much improvement you have on the general fatigue symptoms if that is the cause of it as it improves. Recheck if it is not improved over the next several days to week. Recheck if not generally improved as well. Discharge Date/Time: 09/24/17 14:23
[2017-09-24 13:03] LABS: BASOPHILS # (AUTO) 0.1 10^3/uL (0.0-0.1); BASOPHILS % (AUTO) 0.8 %; EOSINOPHILS # (AUTO) 0.5 10^3/uL (0.0-0.7); EOSINOPHILS % (AUTO) 5.1 %; HGB - HEMOGLOBIN 15.8 g/dL (12.0-16.0); LYMPHOCYTES # (AUTO) 2.9 10^3/uL (1.5-3.5); LYMPHOCYTES % (AUTO) 27.8 %; MEAN CORPUSCULAR HEMOGLOBIN 30.5 pg (27.0-31.0); MEAN CORPUSCULAR HGB CONC 33.6 g/dL (32.0-36.0); MEAN CORPUSCULAR VOLUME 90.6 fL (81.0-99.0); MEAN PLATELET VOLUME 9.3 fL (7.9-10.8); MONOCYTES # (AUTO) 0.7 10^3/uL (0.0-1.0); NEUTROPHILS # (AUTO) 6.2 10^3/uL (1.5-6.6); NEUTROPHILS % (AUTO) 59.3 %; PLT - PLATELET COUNT 245 10^3/uL (130-450); RED BLOOD COUNT 5.19 10^6/uL (4.20-5.40); RED CELL DISTRIBUTION WIDTH 13.1 % (12.0-15.0); WHITE BLOOD COUNT 10.5 x10^3/uL (4.8-10.8)
[2017-09-24 13:22] LABS: BILIRUBIN,URINE NEGATIVE (NEGATIVE); GLUCOSE, URINE (UA) NEGATIVE (NEGATIVE); KETONES,URINE (UA) NEGATIVE (NEGATIVE); LEUKOCYTE ESTERASE, URINE NEGATIVE (NEGATIVE); NITRITE,URINE NEGATIVE (NEGATIVE); OCCULT BLOOD,URINE NEGATIVE (NEGATIVE); PROTEIN,URINE NEGATIVE (NEGATIVE); UROBILINOGEN,URINE 0.2 (NORMAL) E.U./dL (NORMAL)
[2017-09-24 13:24] LABS: ALBUMIN 4.4 g/dL (3.2-5.5); ALBUMIN/GLOBULIN RATIO 1.5 (1.0-2.2); ALKALINE PHOSPHATASE 65 IU/L (42-121); ALT ALANINE AMINOTRANSFERASE 10 IU/L (10-60); AST ASPARTATE AMINOTRANSFERASE 15 IU/L (10-42); BILIRUBIN,TOTAL 0.8 mg/dL (0.2-1.0); BUN - BLOOD UREA NITROGEN 8 mg/dL (6-20); CALCIUM 8.9 mg/dL (8.5-10.3); CARBON DIOXIDE - CO2 25 mmol/L (21-32); CHLORIDE 104 mmol/L (101-111); CREATININE 0.8 mg/dL (0.4-1.0); GFR - MDRD 85 (>89); GLUCOSE 84 mg/dL (70-100); LIPASE 24 U/L (22-51); SODIUM 137 mmol/L (135-145); TOTAL PROTEIN 7.4 g/dL (6.7-8.2)
[2017-09-24 13:26] LABS: HCG,QUALITATIVE BLOOD NEGATIVE
[2017-09-24 13:30] LABS: CLARITY,URINE CLEAR (CLEAR)
[2017-09-24] MEDS ORDERED: DOXYCYCLINE 100 MG TABLET PO STA (14:14)
== END 2017-09-24 14:23 | disposition home or self-care (01) ==
LOC: ED 11:08
DX: R53.83 Other fatigue (principal); N75.0 Cyst of Bartholin's gland
CPT/HCPCS: 36415; 80053; 81003; 83690; 84443; 84703; 85025; 99283; A9270; 81001; 87086

== ENCOUNTER 2018-03-19 17:19 | Emergency (ER) | payer OTHER ==
[2018-03-19 17:34] VITALS: BP 105/69
--- NOTE | 2018-03-19 17:36 | ED Physician Documentation ---
PD HPI URI - Stated complaint Stated Complaint: L EAR PX - Chief complaint Chief Complaint: Heent - History obtained from History obtained from: Patient - History of Present Illness Timing - onset: Other (She has had several days of popping and occasional dizziness of the left ear with slightly decreased hearing. No significant URI symptoms or fevers.) Review of Systems Constitutional: denies: Fever, Chills Ears: reports: Loss of hearing, Ear pain. 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 HEENT: None Psych: Depression, Anxiety Musculoskeletal: None Derm: None - Past Surgical History Past Surgical History: Yes HEENT: Tonsil/Adenoidectomy - Present Medications Home Medications: Ambulatory Orders Medication Instructions Recorded Confirmed Sertraline [Zoloft] 50 mg PO DAILY 05/24/17 03/19/18 Guaifenesin/Pseudoephedrne HCl 1 each PO BID PRN #20 tab.er.12h 03/19/18 [Mucinex D ER 600-60 mg Tablet] - Allergies Allergies/Adverse Reactions: Allergies Allergy/AdvReac Type Severity Reaction Status Date / Time Sulfa (Sulfonamide AdvReac Intermediate Hives Verified 03/19/18 17:34 Antibiotics) sulfamethoxazole AdvReac Hives Verified 03/19/18 17:34 [From ] trimethoprim [From ] AdvReac Hives Verified 03/19/18 17:34 - Social History Does the pt smoke?: Yes Smoking Status: Current every day smoker Does the pt drink ETOH?: Yes Does the pt have substance abuse?: No - Immunizations Immunizations are current?: Yes - POLST Patient has POLST: No PD ED PE NORMAL - Vitals Vital signs reviewed: Yes - General General: Alert and oriented X 3, No acute distress - HEENT HEENT: Other (She has serous otitis on the left) - Neck Neck: Supple, no meningeal sign, No bony TTP - Neuro Neuro: Alert and oriented X 3, Normal speech Results - Vitals Vitals: Vital Signs - 24 hr 03/19/18 17:29 Temperature 36.7 C Heart Rate 77 Respiratory 18 Rate Blood Pressure 105/69 O2 Saturation 100 Oxygen O2 Source Room air Departure - Departure Disposition: 01 Home, Self Care Clinical Impression: Acute serous otitis media of left ear Qualifiers: Recurrence: non-recurrent Qualified Code(s): H65.02 - Acute serous otitis media, left ear Condition: Good Record reviewed to determine appropriate education?: Yes Instructions: ED Otitis Media Serous Adult Prescriptions: Guaifenesin/Pseudoephedrne HCl [Mucinex D ER 600-60 mg Tablet] 1 each PO BID PRN #20 tab.er.12h PRN Reason: congestion Comments: Recheck with your doctor in 1 week if not better.
== END 2018-03-19 17:44 | disposition home or self-care (01) ==
LOC: ED 17:19
DX: H65.02 Acute serous otitis media, left ear (principal); F17.200 Nicotine dependence, unspecified, uncomplicated
CPT/HCPCS: 99283

== ENCOUNTER 2018-07-22 18:24 | Emergency (ER) | payer OTHER ==
[2018-07-22 18:31] VITALS: BP 134/80
--- NOTE | 2018-07-22 18:51 | ED Physician Documentation ---
PD HPI SKIN - Stated complaint Stated Complaint: RASH ON BUTTOCKS - Chief complaint Chief Complaint: Wound - History obtained from History obtained from: Patient - History of Present Illness Timing - onset: How many weeks ago (1) Timing - duration: Weeks (1) Timing - details: Gradual onset Pain level max: 6 Pain level now: 5 Location: Other (R buttock) Quality / character: Painful Improved by: Other (nothing) Worsened by (comment): COMMENT (nothing) Associated symptoms: No: Fever, Myalgias, Joint pain, Headache, Facial swelling, Dyspnea, Abd pain, N/V/D, Urinary sx Contributing factors: No: Exposed to medication, Exposed to food, Exposed to soap / lotion, Exposed to Poison chilo/oak, Insect bite /sting, Recent illness Recently seen: Not recently seen - Additional information Additional information: Patient states that this rash is occurred several times, never lasted this long. This has been present for the past week. States she was given antibiotic ointments once which may have helped. 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 : None HEENT: None Psych: Depression, Anxiety Musculoskeletal: None Derm: None - Past Surgical History Past Surgical History: Yes HEENT: Tonsil/Adenoidectomy - Present Medications Home Medications: Ambulatory Orders Medication Instructions Recorded Confirmed Sertraline [Zoloft] 50 mg PO DAILY 05/24/17 03/19/18 - Allergies Allergies/Adverse Reactions: Allergies Allergy/AdvReac Type Severity Reaction Status Date / Time Sulfa (Sulfonamide AdvReac Intermediate Hives Verified 07/22/18 18:30 Antibiotics) sulfamethoxazole AdvReac Hives Verified 07/22/18 18:30 [From ] trimethoprim [From ] AdvReac Hives Verified 07/22/18 18:30 - Social History Does the pt smoke?: Yes Smoking Status: Current every day smoker Does the pt drink ETOH?: Yes Does the pt have substance abuse?: No - Immunizations Immunizations are current?: Yes - POLST Patient has POLST: No PD ED PE NORMAL - Vitals Vital signs reviewed: Yes - General General: Alert and oriented X 3, No acute distress - HEENT HEENT: Moist mucous membranes - Neck Neck: Supple, no meningeal sign - Cardiac Cardiac: RRR - Respiratory Respiratory: No respiratory distress, Clear bilaterally - Derm Derm: Warm and dry - Extremities Extremities: Other (R buttock - flat violaceous, lacy appearing rash to the r buttock 3x4cm. not raised. no scaling or crusting. ) - Neuro Neuro: Alert and oriented X 3 Results - Vitals Vitals: Vital Signs - 24 hr 07/22/18 18:26 Temperature 36.5 C Heart Rate 79 Respiratory 18 Rate Blood Pressure 134/80 H O2 Saturation 100 Oxygen O2 Source Room air PD MEDICAL DECISION MAKING - ED course Complexity details: considered differential, d/w patient ED course: Patient with a rash of unclear etiology. Does not appear consistent with a bacterial infection. Does not appear consistent with shingles. Will refer her to dermatology in the morning to be evaluated. Patient counseled regarding signs and symptoms for which I believe and urgent re-evaluation would be necessary. Patient with good understanding of and agreement to plan and is comfortable going home at this time This document was made in part using voice recognition software. While efforts are made to proofread this document, sound alike and grammatical errors may occur. Departure - Departure Disposition: 01 Home, Self Care Clinical Impression: Dermatitis Condition: Good Instructions: ED Dermatitis Non Specific Rash Follow-Up: [facility] [Provider Group] - Tomorrow Comments: The cause of your rash is unclear. Follow-up with dermatology tomorrow. Take pictures of the rash in case it changes or is improving. Return if you worsen Discharge Date/Time: 07/22/18 18:54
== END 2018-07-22 18:54 | disposition home or self-care (01) ==
LOC: ED 18:24
DX: L30.9 Dermatitis, unspecified (principal); F17.200 Nicotine dependence, unspecified, uncomplicated
CPT/HCPCS: 99282

== ENCOUNTER 2018-08-06 20:02 | Emergency (ER) | payer OTHER ==
[2018-08-06 20:11] VITALS: BP 130/78
[2018-08-06] MEDS ORDERED: KETOROLAC 60 MG/2 ML VIAL IM STA (20:52)
[2018-08-06] MEDS ORDERED: DEXAMETHASONE 10 MG/ML VIAL PO STA (20:52)
[2018-08-06] MEDS ORDERED: CHERRY SYRUP 10 ML UDC PO ONE (20:52)
[2018-08-06] MEDS ORDERED: HYDROcod/ACET 5/325 Prepack 4 PO STA (20:52)
[2018-08-06] MEDS ORDERED: CYCLOBENZAPRINE 10 MG Prepack 2 PO PRN (20:52)
--- NOTE | 2018-08-06 20:58 | ED Physician Documentation ---
PD HPI BACK PAIN - Stated complaint Stated Complaint: BACK PX - Chief complaint Chief Complaint: General - History obtained from History obtained from: Patient, Family - History of Present Illness Timing - onset: Yesterday Timing - duration: Days (2) Timing - details: Gradual onset, Still present Location: Lower, Right, Left Quality: Pain, Spasm, Sharp Associated symptoms: No: Fever, Weakness, Numbness, Incontinent of urine, Unable to urinate, Hematuria, Incontinent of stool Improves with: Rest, Position, Meds Worsened by: Movement, Palpation Similar symptoms before: Diagnosis (low back pain) Recently seen: Not recently seen - Additional information Additional information: Previously well 28-year-old female has developed acute lower back pain yesterday with radiation of the pain down both of her legs. She has had chronic back pain since the of her daughter and she is usually been able to deal with this with some ibuprofen. The ibuprofen is not been helping. She does not have any saddle anesthesia or change in her bowel or bladder. Review of Systems Constitutional: denies: Fever, Chills Eyes: denies: Decreased vision Ears: denies: Ear pain Nose: denies: Congestion Throat: denies: Sore throat Respiratory: denies: Dyspnea GI: denies: Nausea, Vomiting : denies: Dysuria, Frequency Skin: denies: Rash Musculoskeletal: reports: Back pain. 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 : None HEENT: None Psych: Depression, Anxiety Musculoskeletal: None, Chronic back pain Derm: None - Past Surgical History Past Surgical History: Yes HEENT: Tonsil/Adenoidectomy - Present Medications Home Medications: Ambulatory Orders Medication Instructions Recorded Confirmed Sertraline [Zoloft] 50 mg PO DAILY 05/24/17 08/06/18 Cyclobenzaprine [Flexeril] 10 mg PO TID PRN #20 tablet 08/06/18 Hydrocodone/Acetaminophen 1 - 2 each PO Q6H PRN #14 tablet 08/06/18 [Hydrocodon-Acetaminophen 5-325] - Allergies Allergies/Adverse Reactions: Allergies Allergy/AdvReac Type Severity Reaction Status Date / Time Sulfa (Sulfonamide AdvReac Intermediate Hives Verified 08/06/18 20:11 Antibiotics) sulfamethoxazole AdvReac Hives Verified 08/06/18 20:11 [From ] trimethoprim [From ] AdvReac Hives Verified 08/06/18 20:11 - Social History Does the pt smoke?: Yes Smoking Status: Current every day smoker Does the pt drink ETOH?: Yes Does the pt have substance abuse?: No - Immunizations Immunizations are current?: Yes - POLST Patient has POLST: No PD ED PE NORMAL - Vitals Vital signs reviewed: Yes (normal ) - General General: Alert and oriented X 3, No acute distress, Well developed/nourished, Other (standing in room) - HEENT HEENT: Atraumatic, PERRL, EOMI - Respiratory Respiratory: No respiratory distress - Back Back: No CVA TTP, No spinal TTP, Other (point tenderness to the paraspinous muscles of the lower lumbar spine bilaterally ) - Derm Derm: Normal color, Warm and dry, No rash - Extremities Extremities: No deformity, No edema, No calf tenderness / cord - Neuro Neuro: Alert and oriented X 3, 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, No motor deficit, No sensory deficit, Normal speech Eye Opening: Spontaneous Motor: Obeys Commands Verbal: Oriented GCS Score: 15 - Psych Psych: Normal mood, Normal affect Results - Vitals Vitals: Vital Signs - 24 hr 08/06/18 20:07 Temperature 36.3 C L Heart Rate 72 Respiratory 16 Rate Blood Pressure 130/78 O2 Saturation 100 Oxygen O2 Source Room air PD MEDICAL DECISION MAKING - ED course Complexity details: considered differential, d/w patient, d/w family ED course: 28-year-old female with acute lower lumbar pain and radiation of the pain down both legs has acute sciatica she is administered Dexamethasone 10 mg orally and 60 mg of Toradol IM and she is dispensed pain medication and muscle relaxant. Departure - Departure Disposition: 01 Home, Self Care Clinical Impression: Sciatica Qualifiers: Laterality: bilateral Qualified Code(s): M54.31 - Sciatica, right side; M54.32 - Sciatica, left side Condition: Stable Instructions: ED Sciatica Follow-Up: [facility] [Primary Care Provider] - Prescriptions: Cyclobenzaprine [Flexeril] 10 mg PO TID PRN #20 tablet PRN Reason: Spasms Hydrocodone/Acetaminophen [Hydrocodon-Acetaminophen 5-325] 1 - 2 each PO Q6H PRN #14 tablet PRN Reason: pain
== END 2018-08-06 21:07 | disposition home or self-care (01) ==
LOC: ED 20:02
DX: M54.32 Sciatica, left side (principal); M54.31 Sciatica, right side; F17.200 Nicotine dependence, unspecified, uncomplicated
CPT/HCPCS: 96372; 99283; A9270

== ENCOUNTER 2018-09-19 00:36 | Emergency (ER) | payer OTHER ==
--- NOTE | 2018-09-19 01:42 | ED Physician Documentation ---
History of Present Illness - Stated complaint Stated Complaint: DIZZY, TINGLING IN LEGS - Chief complaint Chief Complaint: Neuro - History obtained from History obtained from: Patient - History of Present Illness Timing: How many days ago (3) Pain level now: 0 Improved by: nothing - Additonal information Additional information: c/o 3 days of BLE paresthesias, dizziness x 3 days. symptoms started approximately 24 hours after stopping zoloft 50mg QD due to running out of medication. she feels generalized anxiety. 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 HEENT: None Psych: Depression, Anxiety Musculoskeletal: None, Chronic back pain Derm: None - Past Surgical History Past Surgical History: Yes HEENT: Tonsil/Adenoidectomy - Present Medications Home Medications: Ambulatory Orders Medication Instructions Recorded Confirmed Sertraline [Zoloft] 50 mg PO DAILY 05/24/17 09/19/18 - Allergies Allergies/Adverse Reactions: Allergies Allergy/AdvReac Type Severity Reaction Status Date / Time Sulfa (Sulfonamide AdvReac Intermediate Hives Verified 09/19/18 00:44 Antibiotics) sulfamethoxazole AdvReac Hives Verified 09/19/18 00:44 [From ] trimethoprim [From ] AdvReac Hives Verified 09/19/18 00:44 - Social History Does the pt smoke?: Yes Smoking Status: Current every day smoker Does the pt drink ETOH?: Yes Does the pt have substance abuse?: No - Immunizations Immunizations are current?: Yes - POLST Patient has POLST: No PD ED PE NORMAL - Vitals Vital signs reviewed: Yes - General General: Alert and oriented X 3, Well developed/nourished, Other (appears mildly anxious at times, mostly NAD) - HEENT HEENT: PERRL, EOMI, Moist mucous membranes - Cardiac Cardiac: RRR, No murmur - Respiratory Respiratory: No respiratory distress, Clear bilaterally - Neuro Neuro: Alert and oriented X 3, 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, No motor deficit, No sensory deficit, Normal speech Results - Vitals Vitals: Vital Signs - 24 hr 09/19/18 02:15 Heart Rate 72 Respiratory 17 Rate Blood Pressure 107/69 O2 Saturation 100 Oxygen O2 Source Room air PD MEDICAL DECISION MAKING - ED course Complexity details: considered differential, d/w patient Departure - Departure Disposition: 01 Home, Self Care Clinical Impression: Selective serotonin reuptake inhibitor (SSRI) discontinuation syndrome Condition: Good Instructions: ED Dizziness UKO Comments: I suspect your symptoms are due to the abrupt discontinuation of your Zoloft; this is not an uncommon problem and should resolve completely within 1-2 days of resumption of your usual dose. It can be avoided in the future by tapering the medication according to what your prescribing physician recommends (usually over a few weeks). Discharge Date/Time: 09/19/18 02:15
[2018-09-19] MEDS ORDERED: SERTRALINE 50 MG TABLET PO STA (01:56)
[2018-09-19 02:25] VITALS: BP 107/69
== END 2018-09-19 02:15 | disposition home or self-care (01) ==
LOC: ED 00:36
DX: T43.225A Adverse effect of selective serotonin reuptake inhibitors, initial encounter (principal); R20.2 Paresthesia of skin; R42 Dizziness and giddiness; F41.1 Generalized anxiety disorder; F17.200 Nicotine dependence, unspecified, uncomplicated
CPT/HCPCS: 99282; 99283; A9270

== ENCOUNTER 2018-12-17 16:15 | Emergency (ER) | payer OTHER ==
[2018-12-17 16:33] VITALS: BP 108/58
--- NOTE | 2018-12-17 16:38 | ED Physician Documentation ---
PD HPI BACK INJURY - Stated complaint Stated Complaint: L LOWER BACK PX - History obtained from History obtained from: Patient - History of Present Illness Location: Left (A little less than a week ago she was lifting an air compressor at home. She developed gradual onset left low back pain that occasionally radiates to the right. It does not radiate radiate into the buttocks. There is no weakness, numbness, tingling, saddle anesthesia, fever, or incontinence. 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 HEENT: None Psych: Depression, Anxiety Musculoskeletal: None, Chronic back pain Derm: None - Past Surgical History Past Surgical History: Yes HEENT: Tonsil/Adenoidectomy - Present Medications Home Medications: Ambulatory Orders Medication Instructions Recorded Confirmed Sertraline [Zoloft] 50 mg PO DAILY 05/24/17 09/19/18 Hydrocodone/Acetaminophen 1 - 2 each PO Q6H PRN #14 tablet 12/17/18 [Hydrocodon-Acetaminophen 5-325] - Allergies Allergies/Adverse Reactions: Allergies Allergy/AdvReac Type Severity Reaction Status Date / Time Sulfa (Sulfonamide AdvReac Intermediate Hives Verified 12/17/18 16:31 Antibiotics) sulfamethoxazole AdvReac Hives Verified 12/17/18 16:31 [From ] trimethoprim [From ] AdvReac Hives Verified 12/17/18 16:31 - Social History Does the pt smoke?: Yes Smoking Status: Current every day smoker Does the pt drink ETOH?: Yes Does the pt have substance abuse?: No - Immunizations Immunizations are current?: Yes - POLST Patient has POLST: No PD ED PE NORMAL - Vitals Vital signs reviewed: Yes - General General: Alert and oriented X 3, No acute distress - Abdomen Abdomen: Soft, Non tender - Back Back: No spinal TTP (but tender L paralumbar msk), Other (The patient has equal and normal Achilles and patellar reflexes bilaterally. Normal sensation in all areas of the legs. Patient denies saddle anesthesia. Normal strength in flexion-extension at the ankles, knees, and flexion of the hips.) - Neuro Neuro: Alert and oriented X 3, Normal speech Results - Vitals Vitals: Vital Signs - 24 hr 12/17/18 16:31 Temperature 36.4 C L Heart Rate 78 Respiratory 16 Rate Blood Pressure 108/58 L O2 Saturation 100 Oxygen O2 Source Room air Departure - Departure Disposition: Home, Self Care Clinical Impression: Back pain Qualifiers: Back pain location: low back pain Chronicity: acute Back pain laterality: left Sciatica presence: without sciatica Qualified Code(s): M54.5 - Low back pain Condition: Good Record reviewed to determine appropriate education?: Yes Instructions: ED Low Back Pain Injury Prescriptions: Hydrocodone/Acetaminophen [Hydrocodon-Acetaminophen 5-325] 1 - 2 each PO Q6H PRN #14 tablet PRN Reason: pain Comments: Do not drink or drive while taking narcotic pain medication. Note that many narcotic pain relievers also contain Tylenol/acetaminophen. Please ensure that your total dose of acetaminophen from all sources does not exceed 3 g (3000 mg) per day. You may get constipated while on this medication. Take a stool softener such as Colace twice a day while you are on it. Also add an [id number] laxative such as senna or MiraLAX on any day that you do not have a bowel movement. If you received a narcotic pain medication or sedative while in the emergency department, do not drive for the next 24 hours. Call your doctor to arrange a follow-up appointment, make the next available appointment. In the interim, return anytime if worse or if new symptoms develop.
== END 2018-12-17 16:55 | disposition home or self-care (01) ==
LOC: ED 16:15
DX: M54.5 Low back pain (principal); X50.0XXA Overexertion from strenuous movement or load, initial encounter; Y93.89 Activity, other specified; F17.200 Nicotine dependence, unspecified, uncomplicated
CPT/HCPCS: 99282; 99283

== ENCOUNTER 2019-03-11 18:27 | Emergency (ER) | payer OTHER ==
[2019-03-11 18:44] VITALS: BP 125/64
--- NOTE | 2019-03-11 19:08 | ED Physician Documentation ---
History of Present Illness - Stated complaint Stated Complaint: LT EAR PX, N/V, HOT FLASES - Chief complaint Chief Complaint: Heent - History obtained from History obtained from: Patient (Sick for 5 days with left-sided earache, body aches, nausea, hot flashes, cough productive of green sputum and shortness of breath. She has underlying asthma and smokes.) Review of Systems Constitutional: reports: Chills, Myalgias, Fatigue. 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 HEENT: None Psych: Depression, Anxiety Musculoskeletal: None, Chronic back pain Derm: None - Past Surgical History Past Surgical History: Yes HEENT: Tonsil/Adenoidectomy - Present Medications Home Medications: Ambulatory Orders Medication Instructions Recorded Confirmed Sertraline [Zoloft] 50 mg PO DAILY 05/24/17 09/19/18 Hydrocodone/Acetaminophen 1 - 2 each PO Q6H PRN #14 tablet 12/17/18 [Hydrocodon-Acetaminophen 5-325] Albuterol Sulf [Ventolin Hfa 1 - 2 puffs INH Q4HR PRN #1 inhaler 03/11/19 Inhaler] Azithromycin [Zithromax] 1 tab PO DAILY #6 tablet 03/11/19 guaiFENesin/CODEINE [Robitussin AC] 5 - 10 ml PO Q6H PRN #120 ml 03/11/19 predniSONE [Deltasone] 60 mg PO DAILY 5 Days #15 tablet 03/11/19 - Allergies Allergies/Adverse Reactions: Allergies Allergy/AdvReac Type Severity Reaction Status Date / Time Sulfa (Sulfonamide AdvReac Intermediate Hives Verified 12/17/18 16:31 Antibiotics) sulfamethoxazole AdvReac Hives Verified 12/17/18 16:31 [From ] trimethoprim [From ] AdvReac Hives Verified 12/17/18 16:31 - Social History Does the pt smoke?: Yes Smoking Status: Current every day smoker Does the pt drink ETOH?: Yes Does the pt have substance abuse?: No - Immunizations Immunizations are current?: Yes - POLST Patient has POLST: No PD ED PE NORMAL - Vitals Vital signs reviewed: Yes - General General: Alert and oriented X 3, No acute distress - HEENT HEENT: Other (TMs and oropharynx are normal, no obvious bad tooth to cause pain.) - Neck Neck: Supple, no meningeal sign, No bony TTP - Cardiac Cardiac: RRR, No murmur - Respiratory Respiratory: No respiratory distress, Other (Wheezy and rhonchorous throughout) - Abdomen Abdomen: Non tender - Derm Derm: No rash - Neuro Neuro: Alert and oriented X 3, Normal speech Results - Vitals Vitals: Vital Signs - 24 hr 03/11/19 18:40 Temperature 36.2 C L Heart Rate 76 Respiratory 18 Rate Blood Pressure 125/64 O2 Saturation 99 Oxygen O2 Source Room air Departure - Departure Disposition: Home, Self Care Clinical Impression: Bronchitis Condition: Good Record reviewed to determine appropriate education?: Yes Instructions: ED Bronchitis Asthmatic Prescriptions: Albuterol Sulf [Ventolin Hfa Inhaler] 1 - 2 puffs INH Q4HR PRN #1 inhaler PRN Reason: Shortness Of Air/Wheezing Azithromycin [Zithromax] 1 tab PO DAILY #6 tablet guaiFENesin/CODEINE [Robitussin AC] 5 - 10 ml PO Q6H PRN #120 ml PRN Reason: Cough predniSONE [Deltasone] 60 mg PO DAILY 5 Days #15 tablet Comments: Call your doctor to arrange a follow-up appointment, make the next available appointment. In the interim, return anytime if worse or if new symptoms develop.
== END 2019-03-11 19:14 | disposition home or self-care (01) ==
LOC: ED 18:27
DX: J45.909 Unspecified asthma, uncomplicated (principal); F17.200 Nicotine dependence, unspecified, uncomplicated
CPT/HCPCS: 99283

== ENCOUNTER 2020-02-08 12:34 | Emergency (ER) | payer OTHER ==
[2020-02-08] MEDS ORDERED: BUFFERED LIDOCAINE 10 ML SYRINGE SUBQ STA (13:30)
--- NOTE | 2020-02-08 13:46 | ED Physician Documentation ---
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 She does state that she shaves and occasionally gets ingrown's. 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 HEENT: None Psych: Depression, Anxiety Musculoskeletal: None, Chronic back pain Derm: None - Past Surgical History Past Surgical History: Yes HEENT: Tonsil/Adenoidectomy - Present Medications Home Medications: Ambulatory Orders Medication Instructions Recorded Confirmed Sertraline [Zoloft] 50 mg PO DAILY 05/24/18 09/19/18 Hydrocodone/Acetaminophen 1 - 2 each PO Q6H PRN #14 tablet 12/17/18 [Hydrocodon-Acetaminophen 5-325] Albuterol Sulf [Ventolin Hfa 1 - 2 puffs INH Q4HR PRN #1 inhaler 03/11/19 Inhaler] Azithromycin [Zithromax] 1 tab PO DAILY #6 tablet 03/11/19 guaiFENesin/CODEINE [Robitussin AC] 5 - 10 ml PO Q6H PRN #120 ml 03/11/19 predniSONE [Deltasone] 60 mg PO DAILY 5 Days #15 tablet 03/11/19 Cephalexin [Keflex] 500 mg PO BID 7 Days #14 capsule 02/08/20 - Allergies Allergies/Adverse Reactions: Allergies Allergy/AdvReac Type Severity Reaction Status Date / Time Sulfa (Sulfonamide AdvReac Intermediate Hives Verified 02/08/20 12:37 Antibiotics) sulfamethoxazole AdvReac Hives Verified 02/08/20 12:37 [From ] trimethoprim [From ] AdvReac Hives Verified 02/08/20 12:37 - Social History Does the pt smoke?: Yes Smoking Status: Current every day smoker Does the pt drink ETOH?: Yes Does the pt have substance abuse?: No - Immunizations Immunizations are current?: Yes - POLST Patient has POLST: No PD ED PE NORMAL - Vitals Vital signs reviewed: Yes - General General: Alert and oriented X 3 - HEENT HEENT: Atraumatic, PERRL, EOMI - Abdomen Abdomen: Soft, Non tender, Non distended - 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), Other (Normal external female genitalia with exception of fluctuant mass to right anterior lateral labia minora just lateral to clitoris.) - Rectal Rectal: Deferred - Back Back: No CVA TTP - Derm Derm: Normal color, Warm and dry - Neuro Neuro: Alert and oriented X 3 Results - Vitals Vitals: Vital Signs - 24 hr 02/08/20 12:37 Temperature 36.5 C Heart Rate 81 Respiratory 16 Rate Blood Pressure 123/77 O2 Saturation 99 Oxygen O2 Source Room air Procedures - Abscess I&D (location) Other right Anterior Preparation: Confirmed with ultrasound (L anterior labia majora abscess just lateral to clitoris), Betadine, Lidocaine 1% Incision: Incised with scalpel, Purulent drainage, Irrigated Other: Pt tolerated well, Antibiotic prescribed, Other (pad provided to patient) PD MEDICAL DECISION MAKING - ED course Complexity details: d/w patient ED course: 30-year-old woman presented with vulvar abscess that was drained without incident. Patient has improvement of in pain status post I&D. Strict return precautions given. Patient will take antibiotics and follow-up with her OB. Departure - Departure Disposition: 01 Home, Self Care Clinical Impression: Abscess Condition: Good Instructions: ED IandD Abscess Ch Prescriptions: Cephalexin [Keflex] 500 mg PO BID 7 Days #14 capsule Comments: You have been seen in the emergency department for an abscess. Make sure that you check the area daily with a mirror to make sure that it is healing normally. Take your antibiotics as prescribed.Please avoid shaving in the vaginal area from now on. This was likely caused by an ingrown. Return to the ED for any new or worsening symptoms. 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
[2020-02-08 13:53] VITALS: BP 132/87
== END 2020-02-08 14:04 | disposition home or self-care (01) ==
LOC: ED 12:34
DX: N76.4 Abscess of vulva (principal); F17.200 Nicotine dependence, unspecified, uncomplicated
CPT/HCPCS: 56405

== ENCOUNTER 2021-07-06 20:38 | Emergency (ER) | payer OTHER ==
[2021-07-06] MEDS ORDERED: ALBUTEROL 1 PUFF INH STA (21:09)
--- NOTE | 2021-07-06 21:14 | ED Physician Documentation ---
History of Present Illness - Stated complaint Stated Complaint: CODIE/COUGH/HEADACHE/SOA - Chief complaint Chief Complaint: Resp - Additonal information Additional information: 31-year-old female who has a history of tobacco use presents emergency department for 3 days of cough cold congestion. No fevers. She feels like she has a wheeze when she coughs. She states that every year around this time she gets bronchitis but has chosen not to treat it for a few years. She did have asthma until her teens. Positive daily tobacco. She has had 1 dose of COVID-19 which she received 3 weeks ago. She is scheduled for the second. Denies loss of taste or smell. No myalgias or rigors Review of Systems Constitutional: denies: Fever, Chills Eyes: reports: Reviewed and negative Nose: reports: Congestion Throat: reports: Reviewed and negative Cardiac: reports: Reviewed and negative Respiratory: reports: Cough, Wheezing. 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 : None HEENT: None Psych: Depression, Anxiety Musculoskeletal: None, Chronic back pain Derm: None - Past Surgical History Past Surgical History: Yes HEENT: Tonsil/Adenoidectomy - Present Medications Home Medications: Ambulatory Orders Medication Instructions Recorded Confirmed Albuterol Sulf [Ventolin Hfa 1 - 2 puffs INH Q4HR PRN #1 inhaler 07/06/21 Inhaler] Escitalopram Oxalate [Lexapro] 20 mg PO DAILY 07/06/21 07/06/21 - Allergies Allergies/Adverse Reactions: Allergies Allergy/AdvReac Type Severity Reaction Status Date / Time Sulfa (Sulfonamide AdvReac Intermediate Hives Verified 07/06/21 20:56 Antibiotics) sulfamethoxazole AdvReac Hives Verified 07/06/21 20:56 [From ] trimethoprim [From ] AdvReac Hives Verified 07/06/21 20:56 - Social History Does the pt smoke?: Yes Smoking Status: Current every day smoker Does the pt drink ETOH?: Yes Does the pt have substance abuse?: No - Immunizations Immunizations are current?: Yes - POLST Patient has POLST: No PD ED PE NORMAL - General General: Alert and oriented X 3, No acute distress, Well developed/nourished - HEENT HEENT: Atraumatic, Ears normal, Moist mucous membranes, Pharynx benign - Neck Neck: Supple, no meningeal sign, No adenopathy - Cardiac Cardiac: RRR, No murmur - Respiratory Respiratory: No respiratory distress. No: Clear bilaterally (Faint scattered expiratory wheeze. No tachypnea or hypoxia. Room air saturations 99%.) - Abdomen Abdomen: Normal bowel sounds, Soft, Non tender - Back Back: No CVA TTP - Derm Derm: Normal color, Warm and dry, No rash - Extremities Extremities: No deformity, No tenderness to palpate, Normal ROM s pain - Neuro Neuro: Alert and oriented X 3, him assistant 2-12 intact Eye Opening: Spontaneous Motor: Obeys Commands Results - Vitals Vitals: Vital Signs - 24 hr 07/06/21 20:52 Temperature 36.1 C L Heart Rate 70 Respiratory 16 Rate Blood Pressure 122/57 L O2 Saturation 100 Oxygen O2 Source Room air PD MEDICAL DECISION MAKING - ED course Complexity details: reviewed results, re-evaluated patient, considered differential, d/w patient ED course: 31-year-old female presents emergency department for evaluation of 3 days of cough cold congestion and some wheeze especially after coughing. No fevers. Reports a history of asthma when she was an adolescent. She is a daily tobacco user. Cardiopulmonary auscultation Showed faint scattered expiratory wheezes. Patient was given albuterol here in the emergency department with marked improvement in her symptoms. Vital signs were normal. Patient felt improved and given short duration of symptoms will defer antibiotics. Will be started on albuterol will recommend nasal decongestant or allergy medicine. Emergent return precautions were discussed for worsening symptoms. Clinically I have low suspicion for pneumonia Departure - Departure Disposition: Home, Self Care Clinical Impression: Cough, Congestion of respiratory tract Condition: Stable Record reviewed to determine appropriate education?: Yes Prescriptions: Albuterol Sulf [Ventolin Hfa Inhaler] 1 - 2 puffs INH Q4HR PRN #1 inhaler PRN Reason: Shortness Of Air/Wheezing Comments: Chloe briceño are seen today in the emergency department for cough congestion that began 3 days ago. Your vital signs here are normal. You do have a mild wheeze. I suspect you either have a viral upper respiratory infection or this could be seasonal allergies. [place] recommend you use this 3-4 times a day with the inhaler. I also would recommend that you take some Benadryl tonight 50 mg. This will help with the nasal congestion and likely the cough. If despite using allergy medication and the albuterol you find that your cough does not improve after 10 days, you develop new fevers or have severe difficulty breathing then please return immediately to the emergency department.
[2021-07-06 21:49] VITALS: BP 121/62
== END 2021-07-06 21:48 | disposition home or self-care (01) ==
LOC: ED 20:38
DX: R09.89 Other specified symptoms and signs involving the circulatory and respiratory systems (principal); R06.2 Wheezing; F17.200 Nicotine dependence, unspecified, uncomplicated
CPT/HCPCS: 94640; 99283

== ENCOUNTER 2022-01-28 20:52 | Emergency (ER) | payer OTHER ==
[2022-01-28 21:10] VITALS: BP 120/72
--- NOTE | 2022-01-28 21:45 | ED Physician Documentation ---
PD HPI LOWER EXT INJURY - Stated complaint Stated Complaint: FOOT INJURY - Chief complaint Chief Complaint: Trauma Ext - History obtained from History obtained from: Patient - Additional information Additional information: She was walking outside barefoot about an hour and a half ago to get her cat and going down a step and her foot forcefully got plantarflexed under her and she has pain near the first MTP radiating up and across the foot. No other injuries. She is able to walk but has to walk on the heel. 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 : None HEENT: None Psych: Depression, Anxiety Musculoskeletal: None, Chronic back pain Derm: None - Past Surgical History Past Surgical History: Yes HEENT: Tonsil/Adenoidectomy - Present Medications Home Medications: Ambulatory Orders Medication Instructions Recorded Confirmed Albuterol Sulf [Ventolin Hfa 1 - 2 puffs INH Q4HR PRN #1 inhaler 07/06/21 Inhaler] Escitalopram Oxalate [Lexapro] 20 mg PO DAILY 07/06/21 07/06/21 - Allergies Allergies/Adverse Reactions: Allergies Allergy/AdvReac Type Severity Reaction Status Date / Time Sulfa (Sulfonamide AdvReac Intermediate Hives Verified 01/28/22 21:09 Antibiotics) sulfamethoxazole AdvReac Hives Verified 01/28/22 21:09 [From ] trimethoprim [From ] AdvReac Hives Verified 01/28/22 21:09 - Social History Does the pt smoke?: Yes Smoking Status: Current every day smoker Does the pt drink ETOH?: Yes Does the pt have substance abuse?: No - Immunizations Immunizations are current?: Yes - POLST Patient has POLST: No PD ED PE NORMAL - Vitals Vital signs reviewed: Yes - General General: Alert and oriented X 3, No acute distress - Extremities Extremities: Other (Mild tenderness about the first MTP without swelling or other foot tenderness. No ankle tenderness. No distal neurovascular compromise.) - Neuro Neuro: Alert and oriented X 3, Normal speech Results - Vitals Vitals: Vital Signs - 24 hr 01/28/22 21:06 Temperature 36.4 C L Heart Rate 63 Respiratory 16 Rate Blood Pressure 120/72 O2 Saturation 100 Oxygen O2 Source Room air - Rads (name of study) Three-view x-ray of the right foot is negative Radiology: EMP read contemporaneously PD MEDICAL DECISION MAKING - ED course ED course: 32-year-old woman presents after what is apparently a right foot sprain of the Extensor tendons of the foot especially medially. She declined pain medication. She is placed in a boot for comfort. Departure - Departure Disposition: 01 Home, Self Care Clinical Impression: Right foot sprain Qualifiers: Encounter type: initial encounter Qualified Code(s): S93.601A - Unspecified sprain of right foot, initial encounter Condition: Good Record reviewed to determine appropriate education?: Yes Instructions: ED Sprain Foot Comments: Tylenol and/or ibuprofen as needed for pain. Elevate in general when you can and you can also ice. It is okay to walk and bear weight, follow-up with your doctor in a week if not better, return for new or worsening symptoms.
--- NOTE | 2022-01-28 21:58 | XRAY Report ---
PROCEDURE: Foot 3 View RT INDICATIONS: Trauma TECHNIQUE: 3 views of the foot were acquired. COMPARISON: None. FINDINGS: Bones: No fractures or dislocations. No suspicious bony lesions. Soft tissues: No tibiotalar joint effusion. Achilles tendon appears normal. IMPRESSION: 1. No fracture or dislocation. Reviewed by: Jimy Bernal MD on 01/28/2022 9:57 PM [facility] Approved by: Jimy Bernal MD on 01/28/2022 9:57 PM [facility] Station ID: [id number]
== END 2022-01-28 22:23 | disposition home or self-care (01) ==
LOC: ED 20:52
DX: S93.601A Unspecified sprain of right foot, initial encounter (principal); X50.1XXA Overexertion from prolonged static or awkward postures, initial encounter; Y93.01 Activity, walking, marching and hiking; F17.200 Nicotine dependence, unspecified, uncomplicated
CPT/HCPCS: 99282; 99283

== ENCOUNTER 2022-08-09 21:25 | Emergency (ER) | payer OTHER ==
[2022-08-09 21:36] VITALS: BP 121/53
--- NOTE | 2022-08-09 22:57 | ED Physician Documentation ---
PD HPI BACK PAIN - Stated complaint Stated Complaint: FALL/BACK PX - Chief complaint Chief Complaint: Trauma Ch/Bk - History obtained from History obtained from: Patient - Additional information Additional information: HPI from patient. Patient c/o sudden onset left lower back pain when she was sitting in a chair at a friend's house and a leg of the chair broke, causing her to fall. She says she struck the back of her head on the table but did not lose consciousness, denies BELLA, denies neck pain. She then fell to the floor and had the low back pain. Pain is worse with movement. Pain does not radiate. The injury occurred earlier tonight. Denies weakness, numbness. Review of Systems Eyes: denies: Loss of vision, Decreased vision Musculoskeletal: reports: Back pain. denies: Neck pain, Extremity pain, Joint pain, Extremity swelling, Joint swelling, Pain with weight bearing Neurologic: reports: Head injury. 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 : None HEENT: None Psych: Depression, Anxiety Musculoskeletal: None, Chronic back pain Derm: None - Past Surgical History Past Surgical History: Yes HEENT: Tonsil/Adenoidectomy - Present Medications Home Medications: Ambulatory Orders Medication Instructions Recorded Confirmed Albuterol Sulf [Ventolin Hfa 1 - 2 puffs INH Q4HR PRN #1 inhaler 07/06/2108/09 Inhaler] Escitalopram Oxalate [Lexapro] 20 mg PO DAILY 07/06/21 08/09/22 - Allergies Allergies/Adverse Reactions: Allergies Allergy/AdvReac Type Severity Reaction Status Date / Time Sulfa (Sulfonamide AdvReac Intermediate Hives Verified 08/09/22 21:29 Antibiotics) sulfamethoxazole AdvReac Hives Verified 08/09/22 21:29 [From ] trimethoprim [From ] AdvReac Hives Verified 08/09/22 21:29 - Social History Does the pt smoke?: Yes Smoking Status: Current every day smoker Does the pt drink ETOH?: Yes Does the pt have substance abuse?: No - Immunizations Immunizations are current?: Yes - POLST Patient has POLST: No PD ED PE NORMAL - Vitals Vital signs reviewed: Yes - General General: Alert and oriented X 3, No acute distress, Well developed/nourished - Neck Neck: No bony TTP - Respiratory Respiratory: No respiratory distress, Clear bilaterally - Back Back: No CVA TTP, No spinal TTP, Other (mild left paralumbar TTP. There is no midline lumbar tenderness, no bony pelvis tenderness. There is mild TTP left lower ribs , posterior aspect, without crepitus or echymosis. 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 Head injury without LOC and no BELLA, no neurologic c/o nor neurologic abnormality on exam. There is some left posterior rib tenderness but mild and without crepitus. Rib fracture(s) considered but unlikely based on the mild tenderness on exam. Given 600mg PO ibuprofen. Return precautions discussed. Work excuse provided to allow for appropriate rest. Departure - Departure Disposition: 01 Home, Self Care Clinical Impression: Lumbar sprain Qualifiers: Encounter type: initial encounter Qualified Code(s): S33.5XXA - Sprain of ligaments of lumbar spine, initial encounter Condition: Good Instructions: ED Low Back Pain Injury, ED Contusion Back Comments: You can take [id number] analgesics as needed per label instructions (such as acetaminophen/Tylenol, or ibuprofen/Advil or Motrin). Certainly, if your symptoms worsen, or if you develop new/concerning signs/symptoms (such as pain that does not respond to [id number] medication, numbness, weakness, loss of bowel or bladder control, severe headache, visual changes), you can always return to the emergency department for reevaluation. Forms: Activity restrictions Discharge Date/Time: 08/09/22 23:28
[2022-08-09] MEDS ORDERED: IBUPROFEN 600 MG TABLET PO STA (23:14)
== END 2022-08-09 23:28 | disposition home or self-care (01) ==
LOC: ED 21:25
DX: S33.5XXA Sprain of ligaments of lumbar spine, initial encounter (principal); W07.XXXA Fall from chair, initial encounter; Y92.009 Unspecified place in unspecified non-institutional (private) residence as the place of occurrence of the external cause; Z79.899 Other long term (current) drug therapy; F17.200 Nicotine dependence, unspecified, uncomplicated
CPT/HCPCS: 99282; 99283; A9270

== ENCOUNTER 2022-10-10 14:58 | Outpatient (CLI) | payer OTHER | END 2022-10-10 23:59 | disposition EMS.NT | LOC: EMS 14:58 | DX: T63.441A Toxic effect of venom of bees, accidental (unintentional), initial encounter (principal) ==